=== PATIENT | female | born 1995 | race African-American/Black ===

== ENCOUNTER 2017-01-28 23:23 | Emergency (ER) | payer MEDICAID ==
[~2017-01-28] VITALS: Ht 172.7 cm; Wt 65.0 kg
[2017-01-29 01:17] VITALS: BP 118/60
== END 2017-01-29 02:11 | disposition left against medical advice (07) ==
LOC: ER 23:32
DX: R10.9 Unspecified abdominal pain (principal)
CPT/HCPCS: 99283; J7030; Z7610

== ENCOUNTER 2018-05-15 11:25 | Emergency (ER) | payer MEDICAID ==
[~2018-05-15] VITALS: Ht 167.6 cm; Wt 90.0 kg
[2018-05-15 11:34] VITALS: BP 143/75
[2018-05-15] MEDS ORDERED: ACETAMINOPHEN 325MG TABLET PO ONE (12:00)
== END 2018-05-15 14:00 | disposition left against medical advice (07) ==
LOC: ER 12:31
DX: O9A.213 Injury, poisoning and certain other consequences of external causes complicating pregnancy, third trimester (principal); S09.8XXA Other specified injuries of head, initial encounter; K80.20 Calculus of gallbladder without cholecystitis without obstruction; Z3A.35 35 weeks gestation of pregnancy; W20.8XXA Other cause of strike by thrown, projected or falling object, initial encounter; Y93.89 Activity, other specified; Y92.89 Other specified places as the place of occurrence of the external cause; Y99.8 Other external cause status
CPT/HCPCS: 99282

== ENCOUNTER 2022-11-20 16:32 | Emergency (ER) | payer MEDICAID ==
[~2022-11-20] VITALS: Ht 167.6 cm; Wt 113.0 kg
[2022-11-20] MEDS ORDERED: IBUPROFEN 600MG TABLET PO STA (17:06)
[2022-11-20 17:43] LABS: CHLORIDE 108 mEq/L (98-107)
[2022-11-20 17:44] LABS: BASOPHILS % 0.5 % (0.0-2.0); HEMATOCRIT. 34.9 % (36.0-48.0); HEMOGLOBIN. 11.1 g/dL (12.0-16.0); LYMPHOCYTES % 21.8 % (20.0-50.0); MEAN CORPUSCULAR HEMOGLOBIN 24.4 pg (28.0-32.0); MEAN CORPUSCULAR VOLUME 76.5 fL (81.0-99.0); MEAN PLATELET VOLUME 7.6 fl (7.4-10.4); MONOCYTES % 5.8 % (2.0-8.0); NEUTROPHILS % 67.9 % (40.0-76.0); PLATELET 475 x1000/uL (130-400); RED BLOOD CELL COUNT 4.56 mill/uL (4.2-5.4); RED CELL DISTRIBUTION WIDTH 16.1 % (11.6-14.6)
[2022-11-20 18:00] VITALS: BP 131/69
[2022-11-20] MEDS ORDERED: IBUP-2029 MT (18:41)
== END 2022-11-20 19:02 | disposition home or self-care (01) ==
LOC: ER 16:32
DX: R07.89 Other chest pain (principal); I10 Essential (primary) hypertension; Z90.49 Acquired absence of other specified parts of digestive tract
CPT/HCPCS: 36415; 71045; 80053; 85025; 85379; 93005; 99285; Z7610